=== PATIENT | female | born 1995 | race Hispanic/Latino ===

== ENCOUNTER 2023-01-03 12:29 | Outpatient (CLI) | payer BC ==
[2023-01-03 14:12] LABS: BHCG - Serum Negative (NEGATIVE); Pregs Control Background? CLEAR/WHITE (CLR/WHITE); Pregs Control Bar Appear? YES (CONTROL BAR)
== END 2023-01-03 12:30 | disposition home or self-care (01) ==
LOC: LABBT 12:29
PROVIDERS: ATTEND Specialist
DX: Z01.812 Encounter for preprocedural laboratory examination (principal); J35.01 Chronic tonsillitis
CPT/HCPCS: 84703; 85014

== ENCOUNTER 2023-04-07 15:37 | Outpatient (CLI) | payer OTHER | END 2023-04-07 15:38 | disposition home or self-care (01) | LOC: SCSRAD 15:37 | PROVIDERS: ATTEND Nurse Practitioner Family | DX: M79.671 Pain in right foot (principal); M79.672 Pain in left foot; M77.32 Calcaneal spur, left foot ==

== ENCOUNTER 2023-06-07 18:33 | Emergency (ER) | payer OTHER ==
[2023-06-07] MEDS ORDERED: Famotidine/PF 20 mg/2ml Vial ONE (18:52)
[2023-06-07] MEDS ORDERED: diphenhydrAMINE 50 MG/ML VIAL ONE (18:52)
[2023-06-07] MEDS ORDERED: methylPREDNISolone Sod Succ/PF 125 MG/2 ML VIAL ONE (18:52)
== END 2023-06-07 20:07 | disposition home or self-care (01) ==
LOC: ERS 18:33
DX: T78.1XXA Other adverse food reactions, not elsewhere classified, initial encounter (principal)
CPT/HCPCS: 96374; 96375; J1200; J2930; S0028

== ENCOUNTER 2023-11-09 15:04 | Emergency (ER) | payer OTHER, SELFPAY ==
[2023-11-09] MEDS ORDERED: diphenhydrAMINE 50 MG CAP ONE (15:37)
[2023-11-09] MEDS ORDERED: Famotidine 20 MG TAB ONE (15:38)
[2023-11-09] MEDS ORDERED: predniSONE 20 MG TAB ONE (15:38)
[2023-11-09] MEDS ORDERED: Ipratropium/Albuterol 3 ML NEB ONE (16:28)
== END 2023-11-09 18:50 | disposition home or self-care (01) ==
LOC: ERS 15:04
DX: T78.1XXA Other adverse food reactions, not elsewhere classified, initial encounter (principal); X58.XXXA Exposure to other specified factors, initial encounter
CPT/HCPCS: 94640; J7512; J7620